=== PATIENT | male | born 1980 | race Two or more races ===

== ENCOUNTER 2018-12-06 19:14 | Emergency (ER) | payer OTHER ==
[~2018-12-06] VITALS: Ht 180.3 cm; Wt 90.7 kg
[2018-12-06 19:35] VITALS: BP 129/86
--- NOTE | 2018-12-06 19:35 | NUR ---
ED Nurse Note: Pt current having R earache for 4 days. Pt went to his MD and got meds but not working. Pt also has headache now.Pt is AO x 4times, VSS, on room air no distress. LEAH seen pt at bedside.
--- NOTE | 2018-12-06 20:08 | Emergency Room Report ---
History of Present Illness General Chief Complaint: Earache Source: Patient Present Illness HPI 38-year-old male presents to the emergency department complaining of 5 out of 10 in severity pain to the right ear 3 days. Patient reports that he is currently taking oral antibiotics for ear infection and states that he has had no improvement of his symptoms. Patient denies ear discharge she does endorse Q -tip use. Patient denies vertigo or ringing in the ears. Patient states that his pain is causing him to have a headache as well which is progressive onset. Denies fevers or chills. Denies loss of or changes to in his hearing. Allergies: Coded Allergies: CODEINE (Verified Allergy, Unknown, 08/18/11) Patient History Past Medical History: see triage record Past Surgical History: none Pertinent Family History: none Reviewed Nursing Documentation: PMH: Agreed; PSxH: Agreed Nursing Documentation-PMH Hx Diabetes: Yes Review of Systems All Other Systems: negative except mentioned in HPI Physical Exam Vital Signs Date Time Temp Pulse Resp B/P (MAP) Pulse Ox O2 Delivery O2 Flow Rate FiO2 12/06/18 19:30 98.2 72 18 98 Room Air Sp02 EP Interpretation: reviewed, normal General Appearance: no apparent distress, alert, GCS 15, non-toxic Head: normocephalic, atraumatic Eyes: bilateral eye normal inspection, bilateral eye PERRL ENT: hearing grossly normal, normal pharynx, normal voice, nasal congestion, other - Right ear canal is macerated, some external ear tenderness to palpation , creamy white d/c noted in the right ear canal. the TM is WNL Neck: full range of motion, no meningismus, no bony tend Respiratory: lungs clear, normal breath sounds, speaking full sentences Cardiovascular #1: regular rate, rhythm Musculoskeletal: back normal, gait/station normal, normal range of motion, non- tender Neurologic: alert, oriented x3, responsive, motor strength/tone normal, sensory intact, speech normal, grossly normal Psychiatric: judgement/insight normal Skin: normal color, no rash, warm/dry, well hydrated Lymphatic: no adenopathy Medical Decision Making PA Attestation Dr. muñiz is my supervising Physician whom patient management has been discussed with. Diagnostic Impression: Primary Impression: Otitis externa of right ear Qualified Codes: H60.501 - Unspecified acute noninfective otitis externa, right ear ER Course 38-year-old male presents to the emergency department complaining of 5 out of 10 in severity pain to the right ear 3 days. Patient reports that he is currently taking oral antibiotics for ear infection and states that he has had no improvement of his symptoms. Patient denies ear discharge she does endorse Q -tip use. Patient denies vertigo or ringing in the ears. Patient states that his pain is causing him to have a headache as well which is progressive onset. Denies fevers or chills. Denies loss of or changes to in his hearing. Ddx considered but are not limited to OM, OE, mastoiditis, TM perforation, FB, shingles just to name a few. Vital signs: are WNL, pt. is afebrile H&PE are most consistent with otitis Externa ORDERS: none required at this time, the diagnosis is clinical -OTOSCOPY: Right ear canal is macerated, some external ear tenderness to palpation, creamy white d/c noted in the right ear canal. the TM is WNL. ED INTERVENTIONS: None required at this time. DISCHARGE: At this time pt. is stable for d/c to home. With PO ABX. Will provide printed patient care instructions, and any necessary prescriptions. Care plan and follow up instructions have been discussed with the patient prior to discharge. Last Vital Signs Date Time Temp Pulse Resp B/P (MAP) Pulse Ox O2 Delivery O2 Flow Rate FiO2 12/06/18 19:30 98.2 72 18 98 Room Air Disposition: HOME, SELF-CARE Condition: Stable Scripts Ofloxacin (OCUFLOX) 5 Ml Drops 1 DRP OP Q6HR, #5 ML Prov: Stephy Mina 12/06/18 Acetaminophen* (TYLENOL EXTRA STRENGTH*) 500 Mg Tablet 500 MG ORAL Q6H, #20 TAB 0 Refills Prov: Stephy Mina 12/06/18 Departure Forms: Return to Work Return to Work Date: December 09, 2018 Work Restrictions: None Other Restrictions: May return Sooner if Symptoms have resolved. Return to Full Activity: December 09, 2018 Patient Instructions: Otitis Externa, [id number] Additional Instructions: Take medications as directed. Follow up with a Primary Care Provider in 3-5 days, even if your symptoms have resolved. --Please review list of primary care clinics, if you do not already have a primary care provider Return sooner to ED if new symptoms occur, or current symptoms become worse. - Please note that this Emergency Department Report was dictated using [employer] treat[employer] technology software, occasionally this can lead to erroneous entry secondary to interpretation by the dictation equipment. Stephy Mina December 06, 2018 20:08
[2018-12-06] MEDS ORDERED: OCUFLOX5 ML OP (20:10)
[2018-12-06] MEDS ORDERED: TYLENOL EXTRA500 MG ORAL (20:10)
[2018-12-06 20:30] VITALS: BP 138/85
--- NOTE | 2018-12-06 20:30 | NUR ---
ER DISCHARGE NOTE: Patient is cleared to be discharged per ERMD, pt is aox4, on room air, with stable vital signs. pt was given dc and prescription instructions, pt was able to verbalize understanding, pt id band removed without complications. pt is able to ambulate with steady gait. pt took all belongings.
== END 2018-12-06 20:30 | disposition home or self-care (01) ==
LOC: EMR 20:00
DX: H60.501 Unspecified acute noninfective otitis externa, right ear (principal); Z88.6 Allergy status to analgesic agent; E11.9 Type 2 diabetes mellitus without complications
CPT/HCPCS: 99282